=== PATIENT | male | born 1930 | race Caucasian/White ===

== ENCOUNTER 2019-12-18 15:53 | Emergency (ER) | payer MEDICARE, OTHER ==
[2019-12-18] MEDS ORDERED: LIDOCAINE-EPINEPH-TETRACAINE 3 ML SYRINGE TOP STA (16:23)
[2019-12-18] MEDS ORDERED: BACITRACIN ZINC OINT 1 PACKET TOP STA (16:23)
--- NOTE | 2019-12-18 16:27 | ED Physician Documentation ---
PD HPI HEAD INJURY - Stated complaint Stated Complaint: GLF - Chief complaint Chief Complaint: Trauma Hd/Nk - History obtained from History obtained from: Patient, Friend - Additional information Additional information: 89yo M, UTD on tetanus. Fell forward in garage just [employer] d/t carrying too much groceries. No LOC. Has head/neck/back pain. Abrasions on face and lac on scalp. No anticoagulants. Review of Systems Constitutional: denies: Fever, Chills Ears: reports: Reviewed and negative Nose: reports: Reviewed and negative. denies: Epistaxis GI: denies: Nausea PD PAST MEDICAL HISTORY - Allergies Allergies/Adverse Reactions: Allergies Allergy/AdvReac Type Severity Reaction Status Date / Time No Known Drug Allergies Allergy Verified 12/18/19 16:13 PD ED PE NORMAL - Vitals Vital signs reviewed: Yes - General General: Alert and oriented X 3, No acute distress - HEENT HEENT: PERRL, EOMI, Other (Lg abrasion mid forehead, small to nasal bridge. 3cm Lac R parietal.) - Neck Neck: Other ([facility]) - Respiratory Respiratory: No respiratory distress, Clear bilaterally - Back Back: No spinal TTP, Other (No T/L/S TTP) - Extremities Extremities: No deformity, No tenderness to palpate, Normal ROM s pain - Neuro Neuro: Alert and oriented X 3, No motor deficit, No sensory deficit, Normal speech - Psych Psych: Normal mood, Normal affect Results - Vitals Vitals: Vital Signs - 24 hr 12/18/19 12/18/19 16:04 17:43 Temperature 36.8 C 36.4 C L Heart Rate 76 63 Respiratory 18 18 Rate Blood Pressure 133/73 H 123/66 O2 Saturation 99 97 Oxygen O2 Source Room air - [facility]name of [facility] Rad[facility]: EMP read contemporaneously (NAD) Procedures - Laceration (location) scalp Length in cm: 3 Wound type: Linear, Into subcut fat Anesthesia: LET, Lidocaine 1% Wound Preparation: Irrigated copiously NS Skin layer closure: Destinee (4) Other: Tetanus UTD Complexity: Simple Departure - Departure Disposition: 01 Home, Self Care Clinical Impression: Concussion, Neck pain Scalp laceration Qualifiers: Encounter type: initial encounter Qualified Code(s): S01.01XA - Laceration without foreign body of scalp, initial encounter Facial abrasion Qualifiers: Encounter type: initial encounter Qualified Code(s): S00.81XA - Abrasion of other part of head, initial encounter Condition: Good Record reviewed to determine appropriate education?: Yes Instructions: ED Abrasion, ED Laceration Scalp Stitch Or Stap Comments: Destinee out in 7-10 days with your doc.
[2019-12-18] MEDS ORDERED: BUFFERED LIDOCAINE 10 ML SYRINGE SUBQ STA (17:01)
--- NOTE | 2019-12-18 17:06 | CT Report ---
PROCEDURE: CERVICAL SPINE WO INDICATIONS: neck injury TECHNIQUE: Noncontrast 3 mm thick sections acquired from the skull base to the T4 level. Sagittal and coronal r eformats were then constructed. For radiation dose reduction, the following was used: automated exp osure control, adjustment of mA and/or kV according to patient size. COMPARISON: None. FINDINGS: Image quality: Excellent. Bones: No fractures or dislocations. Visualized superior ribs are intact. Moderate degenerative di sc disease, with scattered areas of spinal and foraminal stenosis mild to moderate in overall severit y. Soft tissues: Prevertebral soft tissues are normal in thickness. No paravertebral hematomas. No ap ical pneumothoraces. IMPRESSION: No trauma found. 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 Reviewed by: Jose Mcnair MD on 12/18/2019 5:04 PM PDT Approved by: Jose Mcnair MD on 12/18/2019 5:04 PM PDT Station ID: [id number]
--- NOTE | 2019-12-18 17:07 | CT Report ---
PROCEDURE: HEAD WO INDICATIONS: head injury TECHNIQUE: Noncontrast 4.5 mm thick angled axial sections acquired from the foramen magnum to the vertex. For r adiation dose reduction, the following was used: automated exposure control, adjustment of mA and/or kV according to patient size. COMPARISON: None. FINDINGS: Image quality: Excellent. CSF spaces: Basal cisterns are patent. No extra-axial fluid collections. Ventricles are normal in size and shape. Brain: No midline shift. No intracranial masses or hemorrhage. Smith-white matter interface is norm al. Skull and face: Calvarium and visualized facial bones are intact, without suspicious lesions. Sinuses: Visualized sinuses and mastoids are clear. IMPRESSION: No trauma found. A small mucous retention cyst is seen within the posterior right maxill vanna sinus as an incidental finding. No air-fluid level is associated. Reviewed by: Jose Mcnair MD on 12/18/2019 5:06 PM PDT Approved by: Jose Mcnair MD on 12/18/2019 5:06 PM PDT Station ID: [id number]
[2019-12-18 17:44] VITALS: BP 123/66
== END 2019-12-18 17:44 | disposition home or self-care (01) ==
LOC: ED 15:53
DX: S01.01XA Laceration without foreign body of scalp, initial encounter (principal); W18.30XA Fall on same level, unspecified, initial encounter; Y92.008 Other place in unspecified non-institutional (private) residence as the place of occurrence of the external cause
CPT/HCPCS: 12002; 70450; 72125; 99282; 99284; A9270

== ENCOUNTER 2019-12-26 10:25 | Emergency (ER) | payer OTHER ==
[2019-12-26 10:33] VITALS: BP 131/69
--- NOTE | 2019-12-26 10:51 | ED Physician Documentation ---
PD HPI WOUND RECHECK - Stated complaint Stated Complaint: SUTURE REMOVAL - Chief complaint Chief Complaint: Wound - Histroy obtained from History obtained from: Patient - History of Present Illness Location: Scalp (right frontal) Timing - onset: How many days ago (10) Associated symptoms: No: Redness, Swelling, Drainage Similar symptoms before: Has not had sx before Recently seen: Emergency Dept (10 days ago for wound to scalp that had several laron placed. He states healing well without problems.) PD PAST MEDICAL HISTORY - Allergies Allergies/Adverse Reactions: Allergies Allergy/AdvReac Type Severity Reaction Status Date / Time No Known Drug Allergies Allergy Verified 12/26/19 10:34 PD ED PE NORMAL - Vitals Vital signs reviewed: Yes - General General: Alert and oriented X 3, No acute distress, Well developed/nourished, Other (right frontal area with stapled wound that is well healing without signs of infection nor drainage. ) - HEENT HEENT: PERRL, EOMI - Neck Neck: Supple, no meningeal sign, No bony TTP, No adenopathy - Neuro Neuro: Alert and oriented X 3, No motor deficit, Normal speech Results - Vitals Vitals: Vital Signs - 24 hr 12/26/19 10:28 Temperature 36.3 C L Heart Rate 54 L Respiratory 16 Rate Blood Pressure 131/69 H O2 Saturation 97 Oxygen O2 Source Room air Departure - Departure Disposition: 01 Home, Self Care Clinical Impression: Removal of staple Condition: Stable Record reviewed to determine appropriate education?: Yes Follow-Up: TAM ANAND MD [Primary Care Provider] - Comments: Continue cleaning the area with soap and water and applying ointment once or twice daily until the wound is fully healed. Recheck if signs of infection. Discharge Date/Time: 12/26/19 11:38
[2019-12-26] MEDS ORDERED: LIDOCAINE-EPINEPH-TETRACAINE 3 ML SYRINGE TOP STA (10:53)
== END 2019-12-26 11:38 | disposition home or self-care (01) ==
LOC: ED 10:25
DX: S01.01XD Laceration without foreign body of scalp, subsequent encounter (principal); W45.8XXD Other foreign body or object entering through skin, subsequent encounter

== ENCOUNTER 2020-02-24 21:48 | Outpatient (CLI) | payer OTHER | END 2020-02-24 21:49 | disposition home or self-care (01) | LOC: COV 21:48 | PROVIDERS: ATTEND Family Medicine | DX: Z20.822 Contact with and (suspected) exposure to COVID-19 (principal) ==

== ENCOUNTER 2020-02-28 12:26 | Emergency (ER) | payer OTHER ==
--- NOTE | 2020-02-28 13:26 | XRAY Report ---
PROCEDURE: Lumbar Spine 2 View INDICATIONS: fall back pain worsening TECHNIQUE: 2 views of the lumbar spine were acquired. COMPARISON: None. FINDINGS: Bones: 5 [id number] vertebrae are present. There is normal bony alignment. Multiple vertebral body compression fractures are present, but chronicity is uncertain. 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 Mild anterior wedging is present at the vertebral bodies of L 1 and L2. Chronic degenerative disc disease is superimposed, moderate in severity along the lumbosacr al spine. Additionally, there is facet osteoarthritis that is moderately severe at L to-3 and severe at L3-4 an d L4-5. It is also severe with likelihood of significant associated spinal and foraminal stenosis at L5-S1. No suspicious bony lesions. Soft tissues: Overlying bowel gas pattern is normal. No suspicious soft tissue calcifications. IMPRESSION: Multilevel degenerative disc disease and facet osteoarthritis is moderately severe to se adriana and most pronounced over the lower half of the LS-spine. Spinal and foraminal stenosis likely is present most pronounced at L4-5 and especially L5-S1. As discussed above multilevel compression fractures are present, most pronounced at L4, but likely ch ronic at that level. The chronicity of the L1 and L2 mild compression fractures is uncertain and also potentially chronic. MR scanning could be utilized if clinically warranted to differentiate between old versus new compression fractures. Reviewed by: Jose Mcnair MD on 02/28/2020 1:24 PM PST Approved by: Jose Mcnair MD on 02/28/2020 1:24 PM PST Station ID: [id number]
--- NOTE | 2020-02-28 13:43 | ED Physician Documentation ---
PD HPI BACK PAIN - Stated complaint Stated Complaint: BACK PX - Chief complaint Chief Complaint: Back Pain - History obtained from History obtained from: Patient - History of Present Illness Timing - onset: How many months ago (1) Timing - duration: Months (1) Timing - details: Abrupt onset, Still present Location: Lower, Right Quality: Pain, Spasm, Sharp. No: Similar to prior episodes Associated symptoms: No: Fever, Numbness, Incontinent of urine, Unable to urinate, Hematuria, Incontinent of stool Improves with: Rest, Position, Meds Contributing factors: Other (fell while gettingn) Similar symptoms before: Diagnosis (broken back and broken neck) Recently seen: Not recently seen - Additional information Additional information: Previous well 89-year-old male indicates he was going from his house to the house next door where the couple cares for him and feeds him. He went to get on his riding assessor which is how he usually gets back and forth between the houses and his hand slipped on the fender of the tractor and he fell to the ground landing on his right side. This happened about a month ago and he has persistent and increased pain. He has been taking Tylenol 500mg for the pain and this is not adequate. Review of Systems Constitutional: denies: Fever Eyes: denies: Decreased vision Ears: denies: Ear pain Nose: denies: Congestion Throat: denies: Sore throat Cardiac: denies: Chest pain / pressure Respiratory: denies: Cough GI: denies: Nausea, Vomiting, Diarrhea : denies: Dysuria Musculoskeletal: reports: Back pain. denies: Neck pain, Extremity pain Neurologic: denies: Generalized weakness, Focal weakness, Numbness PD PAST MEDICAL HISTORY - Past Medical History Cardiovascular: Hypertension Respiratory: None Neuro: None Endocrine/Autoimmune: None GI: None : Benign prostate hypertrophy HEENT: None Psych: None Musculoskeletal: Osteoarthritis Derm: None - Past Surgical History Past Surgical History: No - Present Medications Home Medications: Ambulatory Orders Medication Instructions Recorded Confirmed traMADol [Ultram] 50 - 100 mg PO Q6H PRN #20 tablet 02/28/20 - Allergies Allergies/Adverse Reactions: Allergies Allergy/AdvReac Type Severity Reaction Status Date / Time No Known Drug Allergies Allergy Verified 02/28/20 12:45 - Social History Does the pt smoke?: No Smoking Status: Never smoker Does the pt drink ETOH?: No Does the pt have substance abuse?: No - Immunizations Immunizations are current?: Yes PD ED PE NORMAL - Vitals Vital signs reviewed: Yes (hypertensive mild ) - General General: Alert and oriented X 3, No acute distress, Well developed/nourished - HEENT HEENT: Atraumatic, PERRL, EOMI - Neck Neck: Supple, no meningeal sign - Respiratory Respiratory: No respiratory distress - Back Back: No CVA TTP, Other (There is midline tenderness to the lumbar spine area with more tenderness to the right lower paraspinous muscles than the left. ) - Derm Derm: Normal color, Warm and dry, No rash - Extremities Extremities: No deformity, No edema - Neuro Neuro: Alert and oriented X 3, oil process stillman 2-12 intact, No motor deficit, No sensory deficit, Normal speech Eye Opening: Spontaneous Motor: Obeys Commands Verbal: Oriented GCS Score: 15 - Psych Psych: Normal mood, Normal affect Results - Vitals Vitals: Vital Signs - 24 hr 02/28/20 02/28/20 12:40 13:51 Temperature 36.8 C 36.8 C Heart Rate 61 75 Respiratory 18 18 Rate Blood Pressure 144/83 H 110/60 O2 Saturation 100 100 Oxygen O2 Source Room air PD MEDICAL DECISION MAKING - ED course Complexity details: reviewed results, re-evaluated patient, considered differential, d/w patient ED course: 89 y/o male with a GLF one month ago appears to have 3 compression fractures of the lumbar spine and the age is indeterminate. I suspect that at least one of these is new and the reason for the patients back pain. He has been taking just 500mg of tylenol and I have added tramadol and asked the patient to try the tylenol at 1000mg and use the tramadol on top of this if it is not adequate. Departure - Departure Disposition: 01 Home, Self Care Clinical Impression: Lumbar compression fracture Qualifiers: Encounter type: initial encounter Lumbar vertebra fracture level: L1 Qualified Code(s): S32.010A - Wedge compression fracture of first lumbar vertebra, initial encounter for closed fracture Condition: Stable Instructions: ED Fx Comp Vertebral Follow-Up: TAM ANAND MD [Primary Care Provider] - Prescriptions: traMADol [Ultram] 50 - 100 mg PO Q6H PRN #20 tablet PRN Reason: Pain Comments: Today it appears you have a lumbar compression fracture. This usually takes about 6 weeks to heal up. The biggest problem gets to be getting in and out of bed to go to the bathroom. I have provided some additional pain medication to use on top of your Tylenol as needed. This will make you constipated and you cannot drive or operate machinery after you have taken it. Discharge Date/Time: 02/28/20 13:58
[2020-02-28 13:51] VITALS: BP 110/60
== END 2020-02-28 13:58 | disposition home or self-care (01) ==
LOC: ED 12:26
DX: S32.010A Wedge compression fracture of first lumbar vertebra, initial encounter for closed fracture (principal); S32.020A Wedge compression fracture of second lumbar vertebra, initial encounter for closed fracture; S32.040A Wedge compression fracture of fourth lumbar vertebra, initial encounter for closed fracture; W17.89XA Other fall from one level to another, initial encounter; Y93.89 Activity, other specified; Y92.007 Garden or yard of unspecified non-institutional (private) residence as the place of occurrence of the external cause; M51.37 Other intervertebral disc degeneration, lumbosacral region; M48.07 Spinal stenosis, lumbosacral region; I10 Essential (primary) hypertension
CPT/HCPCS: 99282; 99284

== ENCOUNTER 2021-06-22 18:39 | Outpatient (CLI) | payer OTHER | END 2021-06-22 18:40 | disposition critical access hospital (66) | LOC: EMS 18:39 | DX: R55 Syncope and collapse (principal); I95.9 Hypotension, unspecified | CPT/HCPCS: A0425; A0427 ==

== ENCOUNTER 2021-06-22 19:03 | Emergency (ER) | payer OTHER ==
[2021-06-22 19:18] LABS: BASOPHILS % (AUTO) 0.4 %; EOSINOPHILS # (AUTO) 0.1 10^3/uL (0.0-0.7); EOSINOPHILS % (AUTO) 2.7 %; HCT - HEMATOCRIT 33.3 % (42.0-52.0); HGB - HEMOGLOBIN 11.5 g/dL (14.0-18.0); LYMPHOCYTES # (AUTO) 1.1 10^3/uL (1.5-3.5); LYMPHOCYTES % (AUTO) 21.4 %; MEAN CORPUSCULAR HEMOGLOBIN 30.1 pg (27.0-31.0); MEAN CORPUSCULAR HGB CONC 34.5 g/dL (32.0-36.0); MEAN CORPUSCULAR VOLUME 87.2 fL (80.0-94.0); MEAN PLATELET VOLUME 9.2 fL (7.4-11.4); MONOCYTES # (AUTO) 0.5 10^3/uL (0.0-1.0); MONOCYTES % (AUTO) 8.8 %; NEUTROPHILS # (AUTO) 3.5 10^3/uL (1.5-6.6); NEUTROPHILS % (AUTO) 66.5 %; PLT - PLATELET COUNT 188 10^3/uL (130-450); RED BLOOD COUNT 3.82 10^6/uL (4.70-6.10); RED CELL DISTRIBUTION WIDTH 12.3 % (12.0-15.0); WHITE BLOOD COUNT 5.2 x10^3/uL (4.8-10.8)
[2021-06-22] MEDS ORDERED: SODIUM CHLORIDE 0.9% 1,000 ML IV STA ×3 (19:18→22:19)
--- NOTE | 2021-06-22 19:18 | ED Physician Documentation ---
History of Present Illness - Stated complaint Stated Complaint: SYNCOPE - Chief complaint Chief Complaint: Neuro - Additonal information Additional information: 89-year-old male was brought to the emergency department for evaluation of a syncopal episode. He was enjoying dinner with a friend when he had a sudden lapse in consciousness. He was reportedly unresponsive for nearly 1 minute before coming to. For EMS he was noted to be hypotensive 60/30 which improved to 80/50's with crystalloid. 89/50 on arrival to the ED He denies any chest pain or shortness of air. No recent illness nausea vomiting diarrhea. He is denying any history of similar in the past. No history of hypertension or coronary artery disease. He denies that he takes any medicines prescribed by physician. A friend at the bedside describes to me that while eating dinner the patient's hands began to shake and he appeared to be asleep. He would not wake up for about 5 minutes and when he did wake up he seemed to be whispering and confused. Patient denies that he was experiencing any headache back pain chest pain or abdominal pain prior to the event. He denies any symptoms at this time. Review of Systems Constitutional: denies: Fever, Chills : reports: Reviewed and negative Skin: reports: Reviewed and negative Musculoskeletal: reports: Reviewed and negative Neurologic: reports: Syncope. denies: Seizure, Headache, Head injury Psychiatric: reports: Reviewed and negative PD PAST MEDICAL HISTORY - Past Medical History Past Medical History: Yes Cardiovascular: Hypertension Respiratory: None Neuro: None Endocrine/Autoimmune: None GI: None : Benign prostate hypertrophy HEENT: None Psych: None Musculoskeletal: Osteoarthritis Derm: None - Past Surgical History Past Surgical History: No - Present Medications Home Medications: Ambulatory Orders Medication Instructions Recorded Confirmed Atorvastatin Calcium 40 mg PO DAILY 06/22/21 06/22/21 Finasteride [Proscar] 5 mg PO DAILY 06/22/21 06/22/21 Nitrofurantoin [Macrobid] 100 mg PO DAILY 06/22/21 06/22/21 Omeprazole 40 mg PO DAILY 06/22/21 06/22/21 Prazosin HCl [Minipress] 5 mg PO QPM 06/22/21 06/22/21 Tamsulosin HCl [Flomax] 1 cap PO DAILY 06/22/21 06/22/21 - Allergies Allergies/Adverse Reactions: Allergies Allergy/AdvReac Type Severity Reaction Status Date / Time No Known Drug Allergies Allergy Verified 06/22/21 19:04 - Social History Does the pt smoke?: No Smoking Status: Never smoker Does the pt drink ETOH?: No Does the pt have substance abuse?: No - Immunizations Immunizations are current?: Yes PD ED PE NORMAL - General General: Alert and oriented X 3, No acute distress, Well developed/nourished - HEENT HEENT: Atraumatic, PERRL, Moist mucous membranes - Neck Neck: Supple, no meningeal sign, No adenopathy - Cardiac Cardiac: RRR, No murmur, No gallop - Respiratory Respiratory: No respiratory distress, Clear bilaterally - Abdomen Abdomen: Normal bowel sounds, Soft - Back Back: No CVA TTP, No spinal TTP - Derm Derm: Normal color, Warm and dry, No rash - Extremities Extremities: No deformity - Neuro Neuro: Alert and oriented X 3, aerodynamicist 2-12 intact Eye Opening: Spontaneous Motor: Obeys Commands Verbal: Oriented GCS Score: 15 - Psych Psych: Normal mood Results - Vitals Vitals: Vital Signs - 24 hr 06/22/21 06/22/21 06/22/21 19:04 19:10 19:19 Temperature 36.5 C 36.5 C Heart Rate 70 70 71 Respiratory 18 18 20 Rate Blood Pressure 89/50 L 89/50 L 110/64 O2 Saturation 98 98 100 06/22/21 06/22/21 06/22/21 19:40 20:10 20:30 Temperature Heart Rate 80 100 120 H Respiratory 16 16 16 Rate Blood Pressure 112/67 118/80 118/78 O2 Saturation 98 100 98 06/22/21 06/22/21 06/22/21 21:00 21:30 22:00 Temperature Heart Rate 138 H 130 H 123 H Respiratory 18 22 24 Rate Blood Pressure 86/57 L 92/57 L 104/72 O2 Saturation 94 95 95 06/22/21 06/22/21 22:30 23:00 Temperature Heart Rate 140 H 76 Respiratory 18 16 Rate Blood Pressure 77/54 L 94/78 O2 Saturation 96 96 Oxygen O2 Source Room air - EKG (time done) 1924 Rate: Rate (enter#) (75) Rhythm: NSR Intervals: RBBB QRS: Low voltage Ischemia: Q waves Compare to prior EKG: Old EKG unavailable Computer interpretation: Agree with computer 2100 Rate: Rate (enter#) (140) Rhythm: Atrial fibrillation [place]: Other Intervals: RBBB QRS: Low voltage Ischemia: Q waves (inferior leads) Compare to prior EKG: Changed from prior EKG Computer interpretation: Agree with computer - Labs Labs: Laboratory Tests 06/22/21 06/22/21 06/22/21 19:10 19:10 19:10 WBC 5.2 RBC 3.82 L Hgb 11.5 L Hct 33.3 L MCV 87.2 MCH 30.1 MCHC 34.5 RDW 12.3 Plt Count 188 MPV 9.2 Neut # (Auto) 3.5 Lymph # (Auto) 1.1 L [place] # (Auto) 0.5 Eos # (Auto) 0.1 Baso # (Auto) 0.0 Absolute Nucleated RBC 0.00 Nucleated RBC % 0.0 PT INR Sodium 135 Potassium 4.1 Chloride 105 Carbon Dioxide 18 L Anion Gap 12.0 BUN 54 H Creatinine 6.2 H Estimated GFR (MDRD) 9 L Glucose 143 H Lactic Acid Calcium 8.7 Total Bilirubin 0.8 AST 18 ALT 17 Alkaline Phosphatase 45 Troponin I High Sens 7.2 B-Natriuretic Peptide Total Protein 5.7 L Albumin 3.3 Globulin 2.4 Albumin/Globulin Ratio 1.4 Lipase 40 TSH Urine Color Urine Clarity Urine pH Ur Specific [place] Urine Protein Urine Glucose (UA) Urine Ketones Urine Occult Blood Urine Nitrite Urine Bilirubin Urine Urobilinogen Ur Leukocyte Esterase Urine RBC Urine WBC Ur Squamous Epith Cells Urine Bacteria Ur Microscopic Review Urine Culture Comments SARS-CoV-2 (PCR) 06/22/21 06/22/21 06/22/21 19:10 19:10 19:10 WBC RBC Hgb Hct MCV MCH MCHC RDW Plt Count MPV Neut # (Auto) Lymph # (Auto) [place] # (Auto) Eos # (Auto) Baso # (Auto) Absolute Nucleated RBC Nucleated RBC % PT 13.0 H INR 1.2 Sodium Potassium Chloride Carbon Dioxide Anion Gap BUN Creatinine Estimated GFR (MDRD) Glucose Lactic Acid 2.3 H Calcium Total Bilirubin AST ALT Alkaline Phosphatase Troponin I High Sens B-Natriuretic Peptide 150 H Total Protein Albumin Globulin Albumin/Globulin Ratio Lipase TSH Urine Color Urine Clarity Urine pH Ur Specific [place] Urine Protein Urine Glucose (UA) Urine Ketones Urine Occult Blood Urine Nitrite Urine Bilirubin Urine Urobilinogen Ur Leukocyte Esterase Urine RBC Urine WBC Ur Squamous Epith Cells Urine Bacteria Ur Microscopic Review Urine Culture Comments SARS-CoV-2 (PCR) 06/22/21 06/22/21 06/22/21 19:47 20:32 21:37 WBC RBC Hgb Hct MCV MCH MCHC RDW Plt Count MPV Neut # (Auto) Lymph # (Auto) [place] # (Auto) Eos # (Auto) Baso # (Auto) Absolute Nucleated RBC Nucleated RBC % PT INR Sodium 137 Potassium 4.0 Chloride 106 Carbon Dioxide 19 L Anion Gap 12.0 BUN 56 H Creatinine 6.0 H Estimated GFR (MDRD) 9 L Glucose 143 H Lactic Acid Calcium 8.5 Total Bilirubin AST ALT Alkaline Phosphatase Troponin I High Sens B-Natriuretic Peptide Total Protein Albumin Globulin Albumin/Globulin Ratio Lipase TSH Urine Color YELLOW Urine Clarity CLOUDY Urine pH 5.5 Ur Specific [place] 1.025 Urine Protein 100 H Urine Glucose (UA) NEGATIVE Urine Ketones NEGATIVE Urine Occult Blood TRACE-INTA Urine Nitrite POSITIVE H Urine Bilirubin NEGATIVE Urine Urobilinogen 0.2 (NORMAL) Ur Leukocyte Esterase MODERATE H Urine RBC 0-5 Urine WBC >25 H Ur Squamous Epith Cells RARE Squamous Urine Bacteria Many H Ur Microscopic Review INDICATED Urine Culture Comments INDICATED SARS-CoV-2 (PCR) NOT DETECTED 06/22/21 06/22/21 21:37 21:37 WBC RBC Hgb Hct MCV MCH MCHC RDW Plt Count MPV Neut # (Auto) Lymph # (Auto) [place] # (Auto) Eos # (Auto) Baso # (Auto) Absolute Nucleated RBC Nucleated RBC % PT INR Sodium Potassium Chloride Carbon Dioxide Anion Gap BUN Creatinine Estimated GFR (MDRD) Glucose Lactic Acid Calcium Total Bilirubin AST ALT Alkaline Phosphatase Troponin I High Sens 7.6 B-Natriuretic Peptide Total Protein Albumin Globulin Albumin/Globulin Ratio Lipase TSH 2.02 Urine Color Urine Clarity Urine pH Ur Specific [place] Urine Protein Urine Glucose (UA) Urine Ketones Urine Occult Blood Urine Nitrite Urine Bilirubin Urine Urobilinogen Ur Leukocyte Esterase Urine RBC Urine WBC Ur Squamous Epith Cells Urine Bacteria Ur Microscopic Review Urine Culture Comments SARS-CoV-2 (PCR) - Rads (name of study) CXR Radiology: Final report received (mild atelectasis left lung) CT head Radiology: Final report received (No acute intracranial abnormality. Moderate to severe cerebral volume loss and mild chronic white matter small vessel ischemic changes) CT abd Radiology: Final report received (Bilateral nephrolithiasis without evidence of obstructive uropathy. Cholelithiasis without evidence of acute cystitis. Colonic diverticulosis without-itis. Multiple compression deformity fractures demonstrated within the lower thoracic and lumbar spine.) PD MEDICAL DECISION MAKING - ED course Complexity details: reviewed results, re-evaluated patient, considered differential, d/w patient ED course: 89-year-old male was brought to the emergency department for evaluation of syncope and hypotension. He had a syncopal episode while eating dinner with a friend haley and for EMS he had blood pressures in the 60s over 30s. He had a lapse in consciousness that lasted approximately 5 minutes. He arrived to the emergency department with a modest hypotension with a blood pressure of 85/90. This improved after a full liter of crystalloid. On presentation he is alert and oriented x4 with no focal neurodeficits. Further history elicited from the patient and his friend at the bedside revealed that the patient was treated at the [facility] in 2019 for obstructive uropathy that at some point required bilateral ureter stending. A discharge summary given to me by the family friend from that hospitalization indicated that the baseline creatinine was 0.9. OVertime the patient has developed a chronic baldder leak and infection. It is my understanding that the patient Screening labs show no leukocytosis. He has a very mild lactate of 2.3. Unfortunately initial screening labs show acute kidney disease. He has a BUN of 54 and a creatinine of 6.4. Given the history of obstructive uropathy in 2019 we will proceed to do a noncontrast CT of the abdomen pelvis to evaluate for obstruction as a cause for his kidney failure. Nursing staff placed a Woody in the patient and only 30 mils of urine was returned. The urinalysis is most consistent with infection. Pt was administered 1 gm of ceftriaxone in the ED 2049: the patient developed A. fib with RVR with a heart rate up into the 140s and 160s. Initial dose of Cardizem was given and the patient developed mild hypotension in the 80s over 50s. THis was repeated once. His BP's remain 80-100 SBP. Despite the modest hypotension the patient remains alert oriented conversant and otherwise well-appearing. 2200: HR continue to trend up to the 160's in fibrillation; digoxin 250 mcg X1 administered to help with rate control. A repeat BMP is pending; if improved BUN/CR he may benefit from additional fluid as he does nto appear in over failure with a BNP of 150 and a CXR that does not suggest fluid overload. Patient is started on maintenance fluids at 200 mils per hour. IF the digoxin does not wok to slow his rate and he ramins modestly hypotensive, can consider an amiodarone infusion. This patient will require transfer to a hospital that has a higher level of care including urology or nephrology services. The [facility] has no beds available. We are starting to reach out to other hospitals. A CT of the abdomen pelvis is pending. 2300: Nursing staff has notified me that the patient's ECG has changed to a heart rate in the 60s still a-fib, though occassionally NSR. His troponins remain negative 2310: I have spoken with Dr. Tidwell hospitalist at [facility]. He has agreed to accept the patient in transfer. Patient will be sent via ALS transport. Appropriate COBRA paperwork completed. Patient was notified. I discussed with the patient at the bedside his wishes for life-sustaining therapy and he does wish to be a full code including CPR, intubation, ventilation and dialysis. - Critical Care Time(min): 30 Time Includes: Direct patient care, Review records, Reassess patient, Document care, Coordinate care Data interpretation: Prior EKG Departure - Departure Disposition: 02 Transfer Acute Care Hosp Clinical Impression: Cystitis Syncope Qualifiers: Syncope type: unspecified Qualified Code(s): R55 - Syncope and collapse Atrial fibrillation Qualifiers: Atrial fibrillation type: unspecified Qualified Code(s): I48.91 - Unspecified atrial fibrillation Hypotension Qualifiers: Hypotension type: unspecified hypotension type Qualified Code(s): I95.9 - Hypotension, unspecified Renal failure Qualifiers: Renal failure chronicity: unspecified chronicity Qualified Code(s): N19 - Unspecified kidney failure
[2021-06-22 19:26] LABS: INR 1.2 (0.8-1.2)
[2021-06-22 19:39] LABS: ALBUMIN 3.3 g/dL (3.2-5.5); ALBUMIN/GLOBULIN RATIO 1.4 (1.0-2.2); BILIRUBIN,TOTAL 0.8 mg/dL (0.2-1.0); CALCIUM 8.7 mg/dL (8.5-10.3); CREATININE 6.2 mg/dL (0.6-1.2); POTASSIUM 4.1 mmol/L (3.5-5.0); TOTAL PROTEIN 5.7 g/dL (6.7-8.2)
[2021-06-22] MEDS ORDERED: fentaNYL 100 MCG/2 ML VIAL IVP STA (20:37)
[2021-06-22 20:38] LABS: BILIRUBIN,URINE NEGATIVE (NEGATIVE); GLUCOSE, URINE (UA) NEGATIVE (NEGATIVE); KETONES,URINE (UA) NEGATIVE (NEGATIVE); LEUKOCYTE ESTERASE, URINE MODERATE (NEGATIVE); NITRITE,URINE POSITIVE (NEGATIVE); OCCULT BLOOD,URINE TRACE-INTA (NEGATIVE); PH,URINE 5.5 PH (5.0-7.5); PROTEIN,URINE 100 mg/dL (NEGATIVE); UROBILINOGEN,URINE 0.2 (NORMAL) E.U./dL (NORMAL)
[2021-06-22 20:40] LABS: CLARITY,URINE CLOUDY (CLEAR)
[2021-06-22] MEDS ORDERED: cefTRIAXone 1 GM VIAL IVP STA (20:45)
[2021-06-22 20:46] LABS: BACTERIA,URINE Many /HPF (None Seen); RBC,URINE 0-5 /HPF (0-5); SQUAMOUS EPITHELIAL CELL,UR RARE Squamous (<= Few); WBC,URINE >25 /HPF (0-3)
--- NOTE | 2021-06-22 20:58 | XRAY Report ---
PROCEDURE: Chest 1 View X-Ray INDICATIONS: Chest Pain TECHNIQUE: One view of the chest was acquired. COMPARISON: None available. FINDINGS: Surgical changes and devices: None. Lungs and pleura: There are linear left basilar opacities likely representing atelectasis. No defini te acute consolidation. No pleural effusions or pneumothorax. Mediastinum: Mediastinal contours appear normal. Heart size is normal. Bones and chest wall: No suspicious bony lesions. Overlying soft tissues appear unremarkable. IMPRESSION: 1. Probable mild atelectasis in the left lung base. Reviewed by: Chaz John MD on 06/22/2021 8:56 PM PDT Approved by: Chaz John MD on 06/22/2021 8:56 PM PDT Station ID: [id number]
[2021-06-22] MEDS ORDERED: diltiaZEM INJ 5 MG/ML VIAL IVP STA ×2 (21:01→21:20)
[2021-06-22] MEDS ORDERED: METOPROLOL 5 MG/5 ML VIAL IVP STA (21:17)
[2021-06-22 21:51] LABS: CALCIUM 8.5 mg/dL (8.5-10.3)
[2021-06-22] MEDS ORDERED: DIGOXIN 500 MCG/2 ML AMP IVP STA (21:56)
--- NOTE | 2021-06-22 22:46 | CT Report ---
PROCEDURE: HEAD WO INDICATIONS: syncope TECHNIQUE: Noncontrast 4.5 mm thick angled axial sections acquired from the foramen magnum to the vertex. For r adiation dose reduction, the following was used: automated exposure control, adjustment of mA and/or kV according to patient size. COMPARISON: 12/10/2019. FINDINGS: Image quality: Excellent. CSF spaces: There is [id number] cerebral volume loss with prominence of the ventricles and s ulci. Basal cisterns are patent. No extra-axial fluid collections. Brain: No intracranial hemorrhage, mass, or mass effect. Smith-white matter interface is preserved. T here are subcortical and periventricular white matter hypodensities consistent with mild chronic smal l vessel ischemic changes. Skull and face: Calvarium and visualized facial bones are intact, without suspicious lesions. Sinuses: Visualized sinuses demonstrate a mucosal polyp or sinus retention cyst within the inferior left maxillary sinus. Mastoid air cells are clear. IMPRESSION: 1. No acute intracranial abnormality. 2. Moderate to severe cerebral volume loss and mild chronic white matter small vessel ischemic change s. Reviewed by: Chaz Kay MD on 06/22/2021 10:45 PM PDT Approved by: Chaz Kay MD on 06/22/2021 10:45 PM PDT Station ID: [id number]
--- NOTE | 2021-06-22 22:58 | CT Report ---
PROCEDURE: Abdomen/Pelvis WO INDICATIONS: starr; ? obstructive uropathy TECHNIQUE: Noncontrast 5 mm thick sections acquired from the diaphragms to the symphysis. 5 mm coronal and sagi ttal reformats were then performed. For radiation dose reduction, the following was used: automated exposure control, adjustment of mA and/or kV according to patient size. COMPARISON: No prior CT available at time of dictation. Lumbar spine x-ray 02/28/2020. FINDINGS: Image quality: There is mild motion artifact. ABDOMEN: Lung bases: There is dependent atelectasis and scarring the lung bases. Heart size is mildly enlarged . There is prominent mitral annular calcification. There is a small hiatal hernia. Solid organs: Noncontrast evaluation of liver demonstrates no discrete mass lesion. There are calcif ied gallstones in the gallbladder. No associated gallbladder wall thickening or pericholecystic fluid . Pancreas is normal in contours. Spleen is normal in size. No adrenal nodules. The kidneys demonstrate no hydronephrosis. There is a small nonobstructing stone within the right kid jonathan measuring up to 0.2 cm. On the left, there are 2 small nonobstructing stones measuring up to 0.2 cm mild nonspecific perinephric stranding is demonstrated bilaterally. The ureters are nondistended. Peritoneum and bowel: Unenhanced bowel loops demonstrate normal wall thickness and caliber. No peric ecal inflammatory changes to suggest appendicitis. There is colonic diverticulosis without acute dive rticulitis. No free fluid or air. Nodes and vessels: No retroperitoneal or mesenteric adenopathy by size criteria. Aorta and inferior vena cava are normal in caliber. There is diffuse vascular calcification. Miscellaneous: No ventral hernias. PELVIS: Genitourinary: There is a Woody catheter within the nondistended urinary bladder. Miscellaneous: There is a small fat-containing right inguinal hernia. No inguinal adenopathy. Bones: No suspicious bony lesions. Multiple compression fractures are redemonstrated within the lowe r thoracic and lumbar spine which appears similar compared to the prior x-ray. These include a severe inferior endplate compression fracture of the L4 vertebral body with up to approximately 60% loss of height. Mild superior endplate compression deformities are also demonstrated at T12, L1, L2, and L3. There is a mild inferior endplate compression deformity at T9. IMPRESSION: 1. Bilateral nephrolithiasis without evidence of obstructive uropathy. 2. Cholelithiasis without CT evidence of acute cholecystitis. 3. Colonic diverticulosis without acute diverticulitis. 4. Multiple compression deformities redemonstrated within the lower thoracic and lumbar spine and rodney ear similar to the prior x-ray study. Reviewed by: Chaz Kay MD on 06/22/2021 10:57 PM PDT Approved by: Chaz Kay MD on 06/22/2021 10:57 PM PDT Station ID: [id number]
[2021-06-23 00:32] VITALS: BP 124/66
== END 2021-06-23 00:32 | disposition short-term general hospital (02) ==
LOC: ED 19:03
DX: N30.90 Cystitis, unspecified without hematuria (principal); R55 Syncope and collapse; I48.91 Unspecified atrial fibrillation; I95.9 Hypotension, unspecified; N17.9 Acute kidney failure, unspecified; Z87.448 Personal history of other diseases of urinary system; Z20.822 Contact with and (suspected) exposure to COVID-19
CPT/HCPCS: 36415; 51701; 80048; 80053; 81001; 81003; 83605; 83690; 83880; 84443; 84484; 85025; 85610; 87040; 87077; 87086; 87150; 87181; 93005; 99291

== ENCOUNTER 2021-06-23 00:35 | Outpatient (CLI) | payer OTHER | END 2021-06-23 00:36 | disposition short-term general hospital (02) | LOC: EMS 00:35 | PROVIDERS: ATTEND Registered Nurse | DX: N17.9 Acute kidney failure, unspecified (principal); N13.9 Obstructive and reflux uropathy, unspecified; I48.91 Unspecified atrial fibrillation; R55 Syncope and collapse; I95.9 Hypotension, unspecified | CPT/HCPCS: A0425; A0426 ==

== ENCOUNTER 2021-07-05 18:25 | Emergency (ER) | payer OTHER ==
--- OUTSIDE RECORDS SUMMARY | 2021-07-05 18:38 | EXTERNAL MEDICAL SUMMARY RPT | Continuity of Care Document ---
:1930 Author Organization [facility] Address [address] [id number] Phone Allergies No information. Encounters No information. Medications No information. Problems date description facility [id number] afib, renal failure, syncope [facility] Results No information.
[2021-07-05] MEDS ORDERED: diltiaZEM INJ 5 MG/ML VIAL IVP STA (18:54)
[2021-07-05 19:19] LABS: BASOPHILS % (AUTO) 0.4 %; EOSINOPHILS # (AUTO) 0.3 10^3/uL (0.0-0.7); EOSINOPHILS % (AUTO) 3.2 %; HCT - HEMATOCRIT 38.5 % (42.0-52.0); HGB - HEMOGLOBIN 13.1 g/dL (14.0-18.0); LYMPHOCYTES # (AUTO) 1.5 10^3/uL (1.5-3.5); LYMPHOCYTES % (AUTO) 19.2 %; MEAN CORPUSCULAR HEMOGLOBIN 30.6 pg (27.0-31.0); MEAN PLATELET VOLUME 9.9 fL (7.4-11.4); MONOCYTES # (AUTO) 0.7 10^3/uL (0.0-1.0); MONOCYTES % (AUTO) 8.8 %; NEUTROPHILS # (AUTO) 5.4 10^3/uL (1.5-6.6); NEUTROPHILS % (AUTO) 68.1 %; PLT - PLATELET COUNT 284 10^3/uL (130-450); RED BLOOD COUNT 4.28 10^6/uL (4.70-6.10); RED CELL DISTRIBUTION WIDTH 13.2 % (12.0-15.0); WHITE BLOOD COUNT 7.9 x10^3/uL (4.8-10.8)
--- NOTE | 2021-07-05 19:21 | ED Physician Documentation ---
History of Present Illness - Stated complaint Stated Complaint: INCREASED HEART RATE - Chief complaint Chief Complaint: Cardiac - Additonal information Additional information: 89-year-old male is brought to the emergency department for evaluation of asymptomatic tachycardia. He was seen by me on 23 June after a syncopal episode. During his evaluation in the ER he was noted to be profoundly hypotensive as well as having developed acute renal failure and atrial fibrillation with a rate that was difficult to control. He was ultimately transferred to [facility]. On discharge he was to follow-up with nephrology and had been started on Eliquis and metoprolol. Today while following up with Dr. Graf the press writer they noted that he had a heart rate of [address] Graf made the recommendation to increase the metoprolol to 25 mg twice daily. The patient was home with his friend and they were getting ready to take nighttime medications when they took his heart rate and noted that it was about 136 therefore they brought him to the ER. Patient denies that he was having any chest pain or dyspnea. Patient is still continuing to try to follow-up with primary care provider as well as cardiology. On initial evaluation in the room I was speaking to the patient and he spontaneously converted from a sinus tach heart rate of 136 to a rate of 70. Review of Systems Constitutional: reports: Reviewed and negative Ears: reports: Reviewed and negative Nose: reports: Reviewed and negative Throat: reports: Reviewed and negative Cardiac: denies: Palpitations Respiratory: reports: Reviewed and negative GI: reports: Reviewed and negative : reports: Reviewed and negative PD PAST MEDICAL HISTORY - Past Medical History Past Medical History: Yes Cardiovascular: Hypertension Respiratory: None Neuro: None Endocrine/Autoimmune: None GI: None : Benign prostate hypertrophy HEENT: None Psych: None Musculoskeletal: Osteoarthritis Derm: None - Past Surgical History Past Surgical History: No - Present Medications Home Medications: Ambulatory Orders Medication Instructions Recorded Confirmed Tamsulosin HCl [Flomax] 1 cap PO DAILY 06/22/21 07/05/21 Apixaban [Eliquis] 2.5 mg PO BID 07/05/21 07/05/21 Furosemide [Lasix] 1 tab PO DAILY 07/05/21 07/05/21 HYDROcod/ACETAM 5/325 [[place] 5/325] 1 tab PO QPM PRN 07/05/21 07/05/21 Metoprolol Tartrate [Lopressor] 25 mg PO BID 07/05/21 07/05/21 - Allergies Allergies/Adverse Reactions: Allergies Allergy/AdvReac Type Severity Reaction Status Date / Time No Known Drug Allergies Allergy Verified 07/05/21 18:28 - Social History Does the pt smoke?: No Smoking Status: Never smoker Does the pt drink ETOH?: No Does the pt have substance abuse?: No - Immunizations Immunizations are current?: Yes - POLST Patient has POLST: No PD ED PE NORMAL - General General: Alert and oriented X 3, No acute distress, Well developed/nourished - HEENT HEENT: Atraumatic, Moist mucous membranes - Neck Neck: Supple, no meningeal sign, No adenopathy - Cardiac Cardiac: RRR, No gallop. 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 Eye Opening: Spontaneous Motor: Obeys Commands Verbal: Oriented GCS Score: 15 - Psych Psych: Normal mood Results - Vitals Vitals: Vital Signs - 24 hr 07/05/21 07/05/21 07/05/21 18:28 19:20 20:02 Temperature 36.5 C Heart Rate 136 H 73 124 H Respiratory 16 25 H 19 Rate Blood Pressure 110/70 109/72 118/96 H O2 Saturation 99 100 96 07/05/21 07/05/21 07/05/21 20:07 20:10 20:12 Temperature Heart Rate 124 H 62 56 L Respiratory 18 17 Rate Blood Pressure 120/88 H 131/75 H O2 Saturation 97 98 07/05/21 07/05/21 07/05/21 20:15 20:28 20:53 Temperature 36.1 C L Heart Rate 59 L 60 63 Respiratory 18 16 20 Rate Blood Pressure 125/71 125/71 129/82 H O2 Saturation 97 98 98 Oxygen O2 Source Room air - EKG (time done) 1832 Rate: Rate (enter#) (136) Rhythm: Sinus tachycardia [place]: Other QRS: Normal Ischemia: Q waves Compare to prior EKG: Changed from prior EKG Computer interpretation: Agree with computer - Labs Labs: Laboratory Tests 07/05/21 07/05/21 07/05/21 19:00 19:00 19:00 WBC 7.9 RBC 4.28 L Hgb 13.1 L Hct 38.5 L MCV 90.0 MCH 30.6 MCHC 34.0 RDW 13.2 Plt Count 284 MPV 9.9 Neut # (Auto) 5.4 Lymph # (Auto) 1.5 [place] # (Auto) 0.7 Eos # (Auto) 0.3 Baso # (Auto) 0.0 Absolute Nucleated RBC 0.00 Nucleated RBC % 0.0 PT 13.8 H INR 1.2 Sodium 134 L Potassium 4.4 Chloride 101 Carbon Dioxide 20 L Anion Gap 13.0 BUN 54 H Creatinine 5.8 H Estimated GFR (MDRD) 9 L Glucose 116 H Calcium 9.8 Total Bilirubin 1.0 AST 24 ALT 23 Alkaline Phosphatase 46 Troponin I High Sens B-Natriuretic Peptide Total Protein 7.5 Albumin 4.3 Globulin 3.2 Albumin/Globulin Ratio 1.3 Lipase 48 07/05/21 07/05/21 19:00 19:00 WBC RBC Hgb Hct MCV MCH MCHC RDW Plt Count MPV Neut # (Auto) Lymph # (Auto) [place] # (Auto) Eos # (Auto) Baso # (Auto) Absolute Nucleated RBC Nucleated RBC % PT INR Sodium Potassium Chloride Carbon Dioxide Anion Gap BUN Creatinine Estimated GFR (MDRD) Glucose Calcium Total Bilirubin AST ALT Alkaline Phosphatase Troponin I High Sens 24.2 H* B-Natriuretic Peptide 592 H Total Protein Albumin Globulin Albumin/Globulin Ratio Lipase - Rads (name of study) cxr Radiology: Final report received (Patchy opacity left lung base stable compared to prior exam likely represents atelectasis.) PD MEDICAL DECISION MAKING - ED course Complexity details: reviewed results, re-evaluated patient, considered differential, d/w patient ED course: 89-year-old male is brought to the emergency department for evaluation of asymptomatic tachycardia. He was seen by me on 23 June after a syncopal episode in which she was found to be profoundly hypotensive. During the ER visit he was found to have acute renal failure and developed A. fib that had for a period of time been refractory to our management though a dose of digoxin ultimately converted him to sinus rhythm. He was discharged after a few days from [facility]. He was started on Eliquis for the history of atrial fibrillation as well as metoprolol for control of his heart rate. Today while at a nephrology appointment the press writer noted that his heart rate was 120. He was advised to increase his metoprolol dose from 12.5 mg twice daily to 25 mg twice daily. While at home his friend and him were getting ready to have dinner when they checked his heart rate and found that it was 136. Patient was free of chest pain palpitations or shortness of air however he comes here to the ER. Screening EKG showed a sinus tachycardia with a fixed rate of 136. troponin 24, likely indicating a mild demand ischemia in the setting of tachycardia. During my initial evaluation in the room the patient suddenly converted to a sinus rhythm. Screening EKG was otherwise without ischemic findings. Chest x-ray did not show anything new or focal. His screening labs did show a very normal hemoglobin. He does remain with acute renal failure and is being followed closely by nephrology. Patient does have an elevated BNP. However chest x-ray is without findings of volume overload and patient currently takes Lasix 20 mg daily. We will not change her regimen at this time 1999: Patient's heart rate abruptly increased to 126 from sinus rhythm in the 70's. Patient remains asymptomatic. We will give 5 mg of metoprolol IV. 2019: The dose of labetalol has successfully reduced his heart rate into the 60s and his sinus. We will continue to monitor him for a while before discharge home. The recommendation will be for him to increase his metoprolol to 25 mg twice daily and continue close follow-up with his primary care provider 2104: Patient's heart rate has remained alternatively between sinus rhythm or atrial fibs but less than 100. He will be discharged home. Stable condition. Continue follow-up with PCP. Will increase his dose of metoprolol to 25 mg twice daily Departure - Departure Disposition: Home, Self Care Clinical Impression: Tachycardia, History of atrial fibrillation, Anticoagulated Chronic kidney disease Qualifiers: Chronic kidney disease stage: stage 4 (severe) Qualified Code(s): N18.4 - Chronic kidney disease, stage 4 (severe) Condition: Stable Record reviewed to determine appropriate education?: Yes Comments: Cristino you are seen today in the emergency department because you have had some elevated heart rates at home. You do have a history of atrial fibrillation. The metoprolol is a medication that helps keep your heart rate under control. If it stays too fast for too long you can develop heart failure. The Eliquis is a medication that was started to help you not form clots that could lead to stroke while you have atrial fibrillation. Here in the emergency department you were given an extra dose of metoprolol in IV form. I would like you to begin taking 25 mg of the oral metoprolol twice daily. If you find that you have heart rates that are greater then 120, if you develop any chest pain, shortness of air or feel faint or dizzy then you need to return to the ER. Please continue to follow-up closely with your primary care doctor on Monday as well as the press writer Dr. Graf.
[2021-07-05 19:26] LABS: INR 1.2 (0.8-1.2); PT - PROTHROMBIN TIME 13.8 secs (9.9-12.6)
--- NOTE | 2021-07-05 19:31 | XRAY Report ---
PROCEDURE: Chest 1 View X-Ray INDICATIONS: Chest Pain TECHNIQUE: One view of the chest was acquired. COMPARISON: 06/22/2021 FINDINGS: Surgical changes and devices: None. Lungs and pleura: No pleural effusions or pneumothorax. Patchy opacity in the left lung base. Mediastinum: Mediastinal contours appear normal. Heart size is normal. Bones and chest wall: No suspicious bony lesions. Overlying soft tissues appear unremarkable. IMPRESSION: Patchy opacity left lung base stable compared to prior exam likely represents atelectasis. Reviewed by: Christine Bui MD, PhD on 07/05/2021 7:30 PM PDT Approved by: Christine Bui MD, PhD on 07/05/2021 7:30 PM PDT Station ID: [id number]
[2021-07-05 19:33] LABS: ALBUMIN 4.3 g/dL (3.2-5.5); ALBUMIN/GLOBULIN RATIO 1.3 (1.0-2.2); CALCIUM 9.8 mg/dL (8.5-10.3); CREATININE 5.8 mg/dL (0.6-1.2); POTASSIUM 4.4 mmol/L (3.5-5.0); TOTAL PROTEIN 7.5 g/dL (6.7-8.2)
[2021-07-05] MEDS ORDERED: METOPROLOL 5 MG/5 ML VIAL IVP STA (20:03)
[2021-07-05 21:19] VITALS: BP 126/80
== END 2021-07-05 21:19 | disposition home or self-care (01) ==
LOC: ED 18:25
DX: R00.0 Tachycardia, unspecified (principal); I48.91 Unspecified atrial fibrillation; N18.4 Chronic kidney disease, stage 4 (severe); Z79.01 Long term (current) use of anticoagulants
CPT/HCPCS: 36415; 80053; 83690; 83880; 84484; 85025; 85610; 93005; 96374; 99283